=== PATIENT | male | born 1985 | race Caucasian/White ===

== ENCOUNTER 2024-08-31 17:54 | Emergency (ER) | payer OTHER, SELFPAY ==
[2024-08-31 18:05] VITALS: BP 144/98; PULSE 115; RESP 16; TEMP 36.3; O2SAT 97; BMI 27.7
[2024-08-31 20:25] VITALS: BP 141/98; PULSE 103; RESP 18; O2SAT 97
--- NOTE | 2024-08-31 20:32 | ED_ITS ---
HPI - Wound/Laceration General Chief Complaint: Wound/Laceration Stated Complaint: hand laceration with knife Time Seen by Provider: 08/31/24 20:23 Source: patient Mode of arrival: Ambulatory History of Present Illness HPI narrative: Patient is a 39-year-old male. He was active [employer]. He was up-to-date on his tetanus shot. He was here for evaluation of a laceration to the palm of his left hand. It occurred while he was using a knife to open an object. Related Data Allergies Allergy/AdvReac Type Severity Reaction Status Date / Time No Known Drug Allergies Allergy Verified 08/31/24 18:05 Review of Systems Constitutional Constitutional: Reports system reviewed and no additional complaints, except as documented Musculoskeletal Musculoskeletal: Reports system reviewed and no additional complaints, except as documented Integumentary/Breasts Skin/Breast: Reports system reviewed and no additional complaints, except as documented Neurologic Neurologic: Reports system reviewed and no additional complaints, except as documented Patient History Social History Smoking Status: Never smoker Smoking Status: Never smoker alcohol intake frequency: holidays/special occasions only Substance Use Type: does not use Exam Initial Vital Signs Initial Vital Signs: Vital Signs Temperature 97.4 F L 08/31/24 18:05 Pulse Rate 115 H 08/31/24 18:05 Respiratory Rate 16 08/31/24 18:05 Blood Pressure 144/98 H 08/31/24 18:05 Pulse Oximetry 97 08/31/24 18:05 Oxygen Delivery Method Room Air 08/31/24 18:05 Const General: cooperative, comfortable and No ill appearing Cardio Pulses: radial pulses present on the left Skin Other: Patient with an 8 cm laceration to the palm of the left hand. Neuro Sensory Exam: no sensory deficits noted Other: No sensory deficits noted in the median nerve distribution. Extrem Other: Laceration to the palm of the left hand. Full range of motion of MCP joints of all the fingers. Procedures Laceration Repair Laceration 1: Site: hand Side (If applicable): left Size (cm): 8 Description: linear Depth: simple, single layer Local Anesthetic: lidocaine 1% Amount of anesthesia used (mL): 8 Pre-repair: wound explored, irrigated extensively and deep structures intact Skin layer closed with: nylon Skin layer suture size: 4-0 Number of sutures: 10 Technique: simple, interrupted Course Orders Ordered: Discontinued Medications Bacitracin (Bacitracin Oint 0.9 Gm Pckt) 1 applic TOP NOW ONE Stop: 08/31/24 21:05 Last Admin: 08/31/24 21:08 Dose: 1 applic Documented By: Vital Signs Vital signs: Vital Signs - 8 hr 08/31/24 20:25 Pulse Rate 103 H Respiratory Rate 18 Blood Pressure 141/98 H Pulse Oximetry 97 Oxygen Delivery Method Room Air MDM - Wound/Laceration MDM Narrative Medical decision making narrative: Patient was up-to-date on his tetanus per his report. Laceration to left hand was closed as described above. It was irrigated extensively here in the emergency department. No foreign bodies noted. It does not appear to be any deep structure injuries. Neurovascularly intact. Patient was given care instructions and return precautions. He expressed understanding and agreement with plan. Discharge Plan Departure Patient Disposition: Home Clinical Impression: Laceration Instructions: DI for Laceration Repair Activity Restrictions/Additional Instructions: You can wash your hands like normal using soap and water. Recommend putting topical antibiotic ointment over the area such as Neosporin or bacitracin. The stitches will need removed in approximately 7-10 days. This can be done by your medical department. Return to the emergency department for new symptoms. Referrals: ProviderVirgil [Primary Care Provider] - Stand Alone Forms: Patient Portal/API/Survey
[2024-08-31] MEDS: BACITRACIN OINT 0.9 GM PCKT 1 APPLIC TOP (21:08)
== END 2024-08-31 21:16 | disposition home or self-care (01) ==
PROVIDERS: Emergency Provider Emergency Medicine
DX: S61.412A Laceration without foreign body of left hand, initial encounter (principal); W26.0XXA Contact with knife, initial encounter; Y93.89 Activity, other specified
CPT/HCPCS: 12004; 99283